=== PATIENT | female | born 1935 | race Caucasian/White ===

== ENCOUNTER 2018-10-25 09:32 | Outpatient (CLI) | payer MEDICARE ==
--- NOTE | 2018-10-25 14:15 | XRAY Report ---
Reason: PAIN IN RIGHT HIP Procedure Date: 10/25/2018 Accession Number: [id number] / [id number] Procedure: XR - Hip w/Pelvis 2-3V RT CPT Code: FULL RESULT: EXAM: RIGHT HIP RADIOGRAPHY EXAM DATE: 10/25/2018 11:13 AM. CLINICAL HISTORY: Pain in right hip. COMPARISON: None. TECHNIQUE: 2 views. FINDINGS: Bones: Normal. No fractures or bone lesion. Joints: No dislocation. The hip joint space is preserved. Probable degenerative facet changes at L4-L5. Soft Tissues: Normal. No soft tissue swelling. IMPRESSION: Normal hip radiography. RADIA
== END 2018-10-25 09:33 | disposition home or self-care (01) ==
LOC: DI 09:32
PROVIDERS: ATTEND Nurse Practitioner Family
DX: M25.551 Pain in right hip (principal)

== ENCOUNTER 2018-11-01 15:03 | Outpatient (CLI) | payer MEDICARE ==
--- NOTE | 2018-11-09 09:24 | Mammography Report ---
Reason: ENCOUNTER FOR SCREENING MAMMOGRAM FOR MALIGNANT NE Procedure Date: 11/01/2018 Accession Number: [id number] / [id number] Procedure: MELVA - Screening Mammo w/Forrest CPT Code: FULL RESULT: EXAM: Screening Mammo w/Forrest DATE: 11/01/2018 3:54 PM CLINICAL HISTORY: Routine screening TECHNIQUE: (B) - Bilateral CC and MLO views were obtained. COMPARISON: 08/21/2017, 08/23/2016 PARENCHYMAL PATTERN: (A) - The breasts demonstrate scattered fibroglandular densities bilaterally. FINDINGS: No significant interval change. There are no suspicious masses, calcifications, or areas of distortion. IMPRESSION: Negative examination. BI-RADS category 1. RECOMMENDATION: (ANNUAL) - Recommend routine annual screening mammography. BI-RADS CATEGORY: (1) - Negative. STANDARD QUALIFYING STATEMENTS: 1. This examination was not reviewed with the aid of Computer-Aided Detection (CAD). 2. A negative or benign imaging report should not preclude biopsy if clinically suspicious findings are present. 3. Dense breasts may obscure an underlying neoplasm. 4. This examination was reviewed with the aid of 3D breast imaging (tomosynthesis).
== END 2018-11-01 15:04 | disposition home or self-care (01) ==
LOC: DI 15:03
PROVIDERS: ATTEND Registered Nurse
DX: Z12.31 Encounter for screening mammogram for malignant neoplasm of breast (principal)
CPT/HCPCS: 77063; 77067

== ENCOUNTER 2019-12-25 13:38 | Outpatient (CLI) | payer MEDICARE ==
--- NOTE | 2019-12-26 11:39 | Mammography Report ---
BILATERAL DIGITAL SCREENING MAMMOGRAM 3D/2D: 12/25/2019 CLINICAL: Routine screening. Comparison is made to exams dated: 11/01/2018 mammogram and 08/30/2017 mammogram - [facility]. There are scattered fibroglandular elements in both breasts. No significant masses, calcifications, or other findings are seen in either breast. There has been no significant interval change. IMPRESSION: NEGATIVE There is no mammographic evidence of malignancy. A 1 year screening mammogram is recommended. This exam was interpreted at Station ID: [id number]. NOTE: For mammograms, a report in lay terms will be sent to the patient. Approximately 15% of breast malignancies will not be visualized mammographically. In the management of a palpable breast mass, a negative mammogram must not discourage biopsy of a clinically suspicious lesion. Electronically Signed By: Mane Joseph M.D. aty/penrad:12/25/2019 18:08:52 ACR BI-RADS Category 1: Negative 3341F PARENCHYMAL PATTERN: (A) - The breast(s) demonstrate(s) scattered fibroglandular densities. BI-RADS CATEGORY: (1) - 1 RECOMMENDATION: (ANNUAL) - Recommend routine annual screening mammography. [id number] 1 year screening LATERALITY: (B)
== END 2019-12-25 13:39 | disposition home or self-care (01) ==
LOC: DI 13:38
PROVIDERS: ATTEND Registered Nurse
DX: Z12.31 Encounter for screening mammogram for malignant neoplasm of breast (principal)
CPT/HCPCS: 77063; 77067

== ENCOUNTER 2020-01-30 09:07 | Day surgery (SDC) | payer MEDICARE ==
[2020-01-30] MEDS ORDERED: LACTATED RINGERS 1,000 ML IV ONE ×2 (09:36→11:17)
[2020-01-30] MEDS ORDERED: fentaNYL 250 MCG/5 ML VIAL IVP ONE (10:48)
[2020-01-30] MEDS ORDERED: MIDAZOLAM 2 MG/2 ML VIAL IVP ONE (10:48)
[2020-01-30 11:34] VITALS: BP 114/68
== END 2020-01-30 09:08 | disposition home or self-care (01) ==
LOC: SDS 09:07
PROVIDERS: ATTEND Surgery
PROC: 0DJD8ZZ Inspection of Lower Intestinal Tract, Via Natural or Artificial Opening Endoscopic (ICD-10-PCS; principal; 2020-01-30 10:30)
DX: Z12.11 Encounter for screening for malignant neoplasm of colon (principal); Z86.010 Personal history of colon polyps; Z80.0 Family history of malignant neoplasm of digestive organs; K57.30 Diverticulosis of large intestine without perforation or abscess without bleeding; K64.4 Residual hemorrhoidal skin tags; K64.8 Other hemorrhoids; Z79.82 Long term (current) use of aspirin
CPT/HCPCS: G0105; J3010; J7120

== ENCOUNTER 2020-12-29 14:11 | Outpatient (CLI) | payer MEDICARE ==
--- NOTE | 2020-12-30 15:13 | Mammography Report ---
BILATERAL DIGITAL SCREENING MAMMOGRAM 3D/2D WITH EXAGGERATED CC: 12/29/2020 CLINICAL: Family history of breast cancer. Comparison is made to exams dated: 12/25/2019 mammogram, 11/01/2018 mammogram, and 08/30/2017 mammogram - [facility]. There are scattered fibroglandular elements in both breasts. No significant masses, calcifications, or other findings are seen in either breast. There has been no significant interval change. IMPRESSION: NEGATIVE There is no mammographic evidence of malignancy. A 1 year screening mammogram is recommended. This exam was interpreted at Station ID: [id number]. NOTE: For mammograms, a report in lay terms will be sent to the patient. Approximately 15% of breast malignancies will not be visualized mammographically. In the management of a palpable breast mass, a negative mammogram must not discourage biopsy of a clinically suspicious lesion. Electronically Signed By: Yannick Spivey M.D. ddp/penrad:12/29/2020 14:52:55 ACR BI-RADS Category 1: Negative 3341F PARENCHYMAL PATTERN: (A) - The breast(s) demonstrate(s) scattered fibroglandular densities. BI-RADS CATEGORY: (1) - 1 RECOMMENDATION: (ANNUAL) - Recommend routine annual screening mammography. [id number] 1 year screening LATERALITY: (B)
== END 2020-12-29 14:12 | disposition home or self-care (01) ==
LOC: DI.S 14:11
DX: Z12.31 Encounter for screening mammogram for malignant neoplasm of breast (principal); Z80.3 Family history of malignant neoplasm of breast

== ENCOUNTER 2021-03-17 09:34 | Outpatient (CLI) | payer MEDICARE ==
--- NOTE | 2021-03-17 10:16 | XRAY Report ---
PROCEDURE: Hand 2 View RT INDICATIONS: MASS OF JOINT OF RIGHT HAND TECHNIQUE: 2 views of the hand(s) acquired. COMPARISON: None available. FINDINGS: BONES: No acute, displaced fracture or dislocation. The carpal bones are normally aligned. 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 Carley int space narrowing and osteophytosis involving the fifth DIP. SOFT TISSUES: No acute abnormality. IMPRESSION: 1.No acute osseous abnormality. 2.Degenerative changes of the hand as detailed above. If there is clinical concern for a ganglion, consider focused ultrasound. Reviewed by: Sundeep Fisher MD on 03/17/2021 10:15 AM PDT Approved by: Sundeep Fisher MD on 03/17/2021 10:15 AM PDT Station ID: [id number]
== END 2021-03-17 09:35 | disposition home or self-care (01) ==
LOC: DI.S 09:34
PROVIDERS: ATTEND Nurse Practitioner Family
DX: M25.841 Other specified joint disorders, right hand (principal); M19.041 Primary osteoarthritis, right hand

== ENCOUNTER 2021-03-23 12:32 | Outpatient (CLI) | payer MEDICARE ==
--- NOTE | 2021-03-23 16:18 | Ultrasound Report ---
PROCEDURE: Ext Limited Non Vascular INDICATIONS: MASS OF RIGHT HAND JOINT TECHNIQUE: Real-time scanning was performed of the right wrist, with image documentation. COMPARISON: Right hand radiographs 03/17/2021 FINDINGS: A hypoechoic structure measuring 1.6 x 0.8 x 1.5 cm is seen at the patient indicated palpable area of interest in the right wrist. No internal vascularity is seen. IMPRESSION: A 1.6 cm hypoechoic structure is seen at the palpable area of interest, most likely representing a ga nglion cyst with intracystic debris or internal hemorrhage, although a solid mass is not excluded. Re commend MRI of the wrist with and without contrast for further evaluation if there is no contraindica tion. Reviewed by: Juan Carlos Khan MD on 03/23/2021 4:17 PM PDT Approved by: Juan Carlos Khan MD on 03/23/2021 4:17 PM PDT Station ID: [id number]
== END 2021-03-23 12:33 | disposition home or self-care (01) ==
LOC: DI 12:32
PROVIDERS: ATTEND Nurse Practitioner Family
DX: M25.841 Other specified joint disorders, right hand (principal)

== ENCOUNTER 2021-10-11 18:15 | Emergency (ER) | payer MEDICARE ==
[2021-10-11] MEDS ORDERED: PROPARACAINE 0.5% OPHTH DROPS 15 ML RIGHTEYE STA (19:13)
[2021-10-11] MEDS ORDERED: ERYTHROMYCIN OPHTH OINT 1 GM TUBE RIGHTEYE STA (19:51)
[2021-10-11] MEDS ORDERED: oxyCODONE/ACET 5/325 Prepack 4 PO STA (19:57)
--- NOTE | 2021-10-11 20:02 | ED Physician Documentation ---
PD HPI OPHTHO - Stated complaint Stated Complaint: R EYE PAIN/SWELLING - Chief complaint Chief Complaint: Heent - History obtained from History obtained from: Patient - Additional information Additional information: Patient is an 86-year-old female with a history of macular degeneration with right eye irritation since this morning. Patient had injection of Avastin at 11 AM in her right eye by her irish moss bleacher, Dr. Campbell. She is had these injections for some time. She felt the usual gritty beth feeling in her right eye but that feeling became worse throughout the day which she has not experi enced previously. She has developed photophobia which she states is also new for her symptoms. She has been in contact with her irish moss bleacher who recommended coming to the emergency department or urgent care for evaluation.Patient states that normally she is not able to see the visual acuity chart from her right eye. She does not use contacts. She denies fever, abnormal discharge, congestion, cough. Review of Systems Constitutional: denies: Fever Eyes: reports: Photophobia. 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 : None HEENT: Chronic vision loss, Macular degeneration Psych: None Musculoskeletal: Osteoarthritis Derm: Other - Past Surgical History Past Surgical History: Yes General: Cholecystectomy, Appendectomy, Colonoscopy Ortho: ACL reconstruction, Arthroscopic surgery, Carpal Tunnel surgery /BREAK OFF WORKER: Tubal ligation, Hysterectomy HEENT: Cataracts, Tonsil/Adenoidectomy - Present Medications Home Medications: Ambulatory Orders Medication Instructions Recorded Confirmed Erythromycin Base [Erythromycin 1 appful RIGHTEYE 5XD 7 Days #1 gm 10/11/21 Ophthalmic Ointment] - Allergies Allergies/Adverse Reactions: Allergies Allergy/AdvReac Type Severity Reaction Status Date / Time No Known Drug Allergies Allergy Verified 10/11/21 18:23 - Social History Does the pt smoke?: No Smoking Status: Never smoker Does the pt drink ETOH?: Yes Does the pt have substance abuse?: No - Immunizations Immunizations are current?: Yes - POLST Patient has POLST: No PD ED PE NORMAL - General General: Alert and oriented X 3, No acute distress, Well developed/nourished - HEENT HEENT: Atraumatic, PERRL, EOMI - Neck Neck: Supple, no meningeal sign - Respiratory Respiratory: No respiratory distress - Derm Derm: No rash - Extremities Extremities: No edema - Neuro Neuro: Normal speech PD ED PE EXPANDED - HEENT HEENT Visual: 1 - abrasion 2 - abrasion 3 - abrasion 4 - abrasion - Eyes Eyes: PERRL, EOMI, Normal eyelids, Corneal abrasion (Right I), Fluorescein upta ke, Anterior chambers clear, Other (IOP 19 R EYE). No: Eyelid swelling, Eyelid erythema, No eyelid FB (everted), Hyphema Results - Vitals Vitals: Vital Signs - 24 hr 10/11/21 10/11/21 18:24 20:26 Temperature 36.6 C 36.6 C Heart Rate 66 64 Respiratory 18 16 Rate Blood Pressure 144/62 H 138/60 H O2 Saturation 99 100 Oxygen O2 Source Room air PD MEDICAL DECISION MAKING - ED course ED course: Patient with right eye irritation after injection for macular degeneration. Visual acuity appears to be at patient's baseline. No signs of preseptal or orbital cellulitis.On exam of the cornea, there is fluorescein uptake seen in 4 areas. Intraocular pressure is normal. Reviewed these findings with on-call irish moss bleacher for patient's irish moss bleacher Who agrees with plan for antibiotic ointment and close follow-up.Patient was counseled regarding her diagnosis and need for close follow-up tomorrow. She is also aware of strict return precautions. 1944 - D/W Dr. Alejandre (Opthlamology, acute care nurse practitioner for Dr. Joseph) - Believes the corneal abrasions could have been caused by the Betadine used for the injection. Recommends erythromycin ointment every 1-2 hours while awake. Has made it a follow-up appointment for the patient to be seen tomorrow morning at 1040 at the [facility]. Departure - Departure Disposition: 01 Home, Self Care Clinical Impression: Right corneal abrasion Qualifiers: Encounter type: initial encounter Qualified Code(s): S05.01XA - Injury of conjunctiva and corneal abrasion without foreign body, right eye, initial encounter Condition: Stable Instructions: ED Eye Injury Corneal Abrasion Prescriptions: Erythromycin Base [Erythromycin Ophthalmic Ointment] 1 appful RIGHTEYE 5XD 7 Days #1 gm Comments: Your right eye was evaluated and found to have a corneal abrasion.We are going to start you on antibiotic ointment which you should apply to the right eye every 1-2 hours while awake. If you wake up in the middle of the night you can apply some more. A prescription for the ointment was also sent to the [facility] in [place]. I have spoken to The on-call irish moss bleacher and they have made an appointment for you to be seen at the [facility] tomorrow morning October 12 at 10:40 AM. It is important to keep this appointment for close follow-up. If it anytime you seem to have any worsening symptoms such as fever, swelling, increased pain, changes to your vision please return to the emergency department. You will also be given a small amount of narcotic medication to use tonight to help you get some rest. Please use this sparingly as it may cause dizziness or drowsiness. I am prescribing a short course of narcotic pain medication for you. These are potentially dangerous and addictive medications that should be used carefully. These medications may constipate you. Take an amyu-wro-ejanuum stool softener (docusate) twice daily with plenty of water while taking these medications. If you go 24 hours without a bowel movement, take lcey-ewa-zpbbdxs miralax, per package instructions. Do not drink or drive while taking these medications. If you received narcotic or sedating medications while in the emergency department, do not drive for 24 hours. Store this medication in a safe, secure place and out of reach of children. It is a violation of federal law to give or sell this medication to another person or to use in a manner other than prescribed. The ED will not refill narcotic prescriptions, including prescriptions lost or stolen. To dispose of unwanted medications: 1. [facility] [address] in [place] has a medication drop box. They accept prescription medications (in pill form) [place] through Monday 9:00 a.m. to 5:00 p.m. 2. The [facility] [employer] accepts prescription medications (in pill form only) for disposal year round. Call for more in formation. 3. Contact the [facility] for the next [facility] sponsored prescription drug collection event. , [phone], or [phone]; Note that many narcotic pain relievers also contain Tylenol/acetaminophen. Please ensure that your total dose of acetaminophen from all sources does not exceed 3 g (3000 mg) per day. Discharge Date/Time: 10/11/21 20:26
[2021-10-11 20:27] VITALS: BP 138/60
== END 2021-10-11 20:26 | disposition home or self-care (01) ==
LOC: ED 18:15
DX: S05.01XA Injury of conjunctiva and corneal abrasion without foreign body, right eye, initial encounter (principal); X58.XXXA Exposure to other specified factors, initial encounter
CPT/HCPCS: 99282; 99284; J3490

== ENCOUNTER 2021-12-28 08:00 | Outpatient (CLI) | payer MEDICARE ==
--- NOTE | 2021-12-29 16:18 | Mammography Report ---
BILATERAL DIGITAL SCREENING MAMMOGRAM 3D/2D: 12/28/2021 CLINICAL: Routine screening. Family history of breast cancer. Comparison is made to exams dated: 12/29/2020 mammogram, 12/25/2019 mammogram, and 11/01/2018 mammogram - [facility]. There are scattered fibroglandular elements in both breasts. No significant masses, calcifications, or other findings are seen in either breast. There has been no significant interval change. IMPRESSION: NEGATIVE There is no mammographic evidence of malignancy. A 1 year screening mammogram is recommended. Based on the Tyrer Cuzick model (a risk assessment model) the patients lifetime risk is % and her 10 year risk is %. According to the ACR, ACS, and NCCN guidelines, an annual breast MRI exam along with mammogram is recommended if the patients lifetime risk is 20% or greater. This exam was interpreted at Station ID: [id number]. NOTE: For mammograms, a report in lay terms will be sent to the patient. Approximately 15% of breast malignancies will not be visualized mammographically. In the management of a palpable breast mass, a negative mammogram must not discourage biopsy of a clinically suspicious lesion. Electronically Signed By: Mane Joseph M.D. aty/penrad:12/29/2021 07:48:35 ACR BI-RADS Category 1: Negative 3341F PARENCHYMAL PATTERN: (A) - The breast(s) demonstrate(s) scattered fibroglandular densities. BI-RADS CATEGORY: (1) - 1 RECOMMENDATION: (ANNUAL) - Recommend routine annual screening mammography. [id number] 1 year screening LATERALITY: (B)
== END 2021-12-28 23:59 | disposition home or self-care (01) ==
LOC: DI.S 08:00
DX: Z12.31 Encounter for screening mammogram for malignant neoplasm of breast (principal); Z80.3 Family history of malignant neoplasm of breast

== ENCOUNTER 2023-04-25 08:45 | Outpatient (CLI) | payer MEDICARE ==
--- NOTE | 2023-04-26 16:06 | Mammography Report ---
BILATERAL DIGITAL SCREENING MAMMOGRAM 3D/2D: 04/25/2023 CLINICAL: Routine screening. Family history of breast cancer. Comparison is made to exams dated: 12/28/2021 mammogram, 12/29/2020 mammogram, 12/25/2019 mammogram, an d 11/01/2018 mammogram - [facility]. There are scattered areas of fibroglandular density in both breasts (category b / 25%-50% glandular t issue). No significant masses, calcifications, or other findings are seen in either breast. There has been no significant interval change. IMPRESSION: NEGATIVE There is no mammographic evidence of malignancy. A 1 year screening mammogram is recommended. This exam was interpreted at Station ID: [id number]. NOTE: For mammograms, a report in lay terms will be sent to the patient. Approximately 15% of breast malignancies will not be visualized mammographically. In the management of a palpable breast mass, a negative mammogram must not discourage biopsy of a clinically suspicious lesion. Electronically Signed By: Helder johnson/maris:04/25/2023 18:13:03 letter sent: No_Letter ACR BI-RADS Category 1: Negative 3341F PARENCHYMAL PATTERN: (A) - The breast(s) demonstrate(s) scattered fibroglandular densities. BI-RADS CATEGORY: (1) - 1 Mammogram [id number] 1 year screening LATERALITY: (B)
== END 2023-04-25 08:46 | disposition home or self-care (01) ==
LOC: DI.S 08:45
DX: Z12.31 Encounter for screening mammogram for malignant neoplasm of breast (principal); Z80.3 Family history of malignant neoplasm of breast; R92.323 Mammographic fibroglandular density, bilateral breasts

== ENCOUNTER 2023-07-31 09:48 | Outpatient (CLI) | payer MEDICARE ==
--- NOTE | 2023-07-31 14:05 | XRAY Report ---
PROCEDURE: Knee 3V RT INDICATIONS: PAIN IN RIGHT LOWER LIMB TECHNIQUE: 3 views of the knee(s) were acquired. COMPARISON: None. FINDINGS: Bones: No fractures or dislocations. No suspicious bony lesions. Moderate to severe tricompartmental degenerative change most severe medially. Periarticular osteophyt es are present. No erosions. Mild lateral patellar subluxation. Soft tissues: No knee joint effusion. No suspicious soft tissue calcifications or masses. IMPRESSION: Tricompartmental arthritic change. Reviewed by: Teena Geiger MD on 07/31/2023 2:04 PM PST Approved by: Teena Geiger MD on 07/31/2023 2:04 PM PST Station ID: [id number]
== END 2023-07-31 09:49 | disposition home or self-care (01) ==
LOC: DI.S 09:48
PROVIDERS: ATTEND Registered Nurse
DX: M17.11 Unilateral primary osteoarthritis, right knee (principal)

== ENCOUNTER 2023-10-18 15:27 | Outpatient (CLI) | payer MEDICARE ==
--- NOTE | 2023-10-18 21:22 | XRAY Report ---
PROCEDURE: Lumbar Spine 2-3V INDICATIONS: RIGHT SIDE SCIATICA TECHNIQUE: 3 views of the lumbar spine were acquired. COMPARISON: None. FINDINGS: Bones: 5 jdu-wyo-ckaeqnh vertebrae are present. There is trace retrolisthesis of L1 on L2, L2 on L3 , trace anterolisthesis of L4 on L5. Multilevel moderate to severe disc space narrowing is present mo st severe at T12-L1, L1-L2 and L5-S1. Moderate to severe foraminal narrowing is present at T12-L1, L1 -L2 and L5-S1. Small multilevel anterior osteophytes are present. No vertebral body compression fract ures. No suspicious bony lesions. Soft tissues: Overlying bowel gas pattern is normal. No suspicious soft tissue calcifications. IMPRESSION: Multilevel degenerative disc and foraminal narrowing most severe at T12-L1, L1-L2 and L5-S1. Reviewed by: Teena Geiger MD on 10/18/2023 9:21 PM PDT Approved by: Teena Geiger MD on 10/18/2023 9:21 PM PDT Station ID: [id number]
--- NOTE | 2023-10-18 21:23 | XRAY Report ---
PROCEDURE: Hip w/Pelvis 2-3V RT INDICATIONS: RIGHT SIDE SCIATICA TECHNIQUE: 2 views of the hip were acquired. COMPARISON: X-ray hip 10/25/2018 FINDINGS: Bones: No fractures or dislocations. No suspicious bony lesions. Moderate bilateral degenerative hip joint space narrowing. No distinct erosions. Overall appearance is minimally progressive compared to 2019. Degenerative changes are present within the lower lumbar spine. Soft tissues: No suspicious soft tissue calcifications or masses. IMPRESSION: Bilateral hip arthritic change slightly worse on the right and minimally progressive since 2019. Reviewed by: Teena Geiger MD on 10/18/2023 9:22 PM PDT Approved by: Teena Geiger MD on 10/18/2023 9:22 PM PDT Station ID: [id number]
== END 2023-10-18 15:28 | disposition home or self-care (01) ==
LOC: DI.S 15:27
PROVIDERS: ATTEND Nurse Practitioner Family
DX: M54.31 Sciatica, right side (principal); M16.0 Bilateral primary osteoarthritis of hip; M51.36 Other intervertebral disc degeneration, lumbar region; M48.061 Spinal stenosis, lumbar region without neurogenic claudication; M51.37 Other intervertebral disc degeneration, lumbosacral region; M48.07 Spinal stenosis, lumbosacral region

== ENCOUNTER 2023-10-31 12:40 | Outpatient (CLI) | payer MEDICARE ==
--- NOTE | 2023-10-31 17:52 | MRI Report ---
PROCEDURE: Lumbar Spine WO INDICATIONS: R SIDE SCIATICA TECHNIQUE: Noncontrast sagittal T1 spin echo and T2 fast echo, sagittal STIR, axial T1 and T2 fast spin echo thr ough the lumbar spine. In cases with scoliosis, additional coronal T2 fast spin echo may be performe d. COMPARISON: Lumbar spine x-ray 10/18/2023. FINDINGS: Image quality: Excellent. Alignment and Curvature: There is grade 1 retrolisthesis of T12 on L1, L1-L2. Grade I anterolisthesis of L4 on L5.. Bone Marrow: Normal type I degenerative endplate changes at T12-L1. Marrow is of normal overall sign al. No acute vertebral body compression fractures. Spinal Cord: Conus medullaris terminates at the L1 level. Visualized cord demonstrates normal signa l and size. Paraspinous Soft Tissues: No paravertebral masses. Bilateral subcentimeter renal T2 hyperintensitie s, if it represents simple cysts. T12-L1: Disc desiccation, height loss and a posterior disc bulge. Facet arthropathy and thickening o f ligamentum flavum. No significant central canal or neural foraminal stenosis. L1-L2: Disc desiccation, height loss and a posterior disc bulge. Facet arthropathy and thickening of ligamentum flavum. Mild central canal and bilateral neural foraminal stenosis. L2-L3: Disc desiccation, height loss and a posterior disc bulge. Facet arthropathy and thickening of ligamentum flavum. Mild central canal and bilateral neural foraminal stenosis. L3-L4: Disc desiccation, height loss and a posterior disc bulge. Facet arthropathy and thickening o f ligamentum flavum. Mild epidural lipomatosis. Mild central canal and bilateral neural foraminal jeanne nosis. L4-L5: Anterolisthesis. Disc desiccation, height loss and a posterior disc bulge. Facet arthropathy and thickening of ligamentum flavum. Moderate central canal stenosis. Severe right and mild left chary ral foraminal stenosis. L5-S1: Disc desiccation. Facet arthropathy. No central canal or neural foraminal stenosis. IMPRESSION: 1.Multilevel degenerative changes of the lumbar spine as described above. 2.Moderate central canal stenosis at L4-L5. Mild multilevel central canal stenosis at other levels. 3.Severe right neuroforaminal stenosis at L4-L5. Mild multilevel neural foraminal stenosis at other l evels. Reviewed by: Jorge A Cates MD on 10/31/2023 4:50 PM AKDT Approved by: Jorge A Cates MD on 10/31/2023 4:50 PM AKDT Station ID: [id number]
== END 2023-10-31 12:41 | disposition home or self-care (01) ==
LOC: DI 12:40
PROVIDERS: ATTEND Nurse Practitioner Family
DX: M47.25 Other spondylosis with radiculopathy, thoracolumbar region (principal); M51.15 Intervertebral disc disorders with radiculopathy, thoracolumbar region; M47.26 Other spondylosis with radiculopathy, lumbar region; M51.16 Intervertebral disc disorders with radiculopathy, lumbar region; M47.27 Other spondylosis with radiculopathy, lumbosacral region; M51.17 Intervertebral disc disorders with radiculopathy, lumbosacral region

== ENCOUNTER 2023-11-30 10:56 | Outpatient (CLI) | payer MEDICARE ==
[2023-11-30 15:09] LABS: BASOPHILS % (AUTO) 0.3 %; EOSINOPHILS % (AUTO) 0.1 %; HCT - HEMATOCRIT 39.2 % (37.0-47.0); HGB - HEMOGLOBIN 12.5 g/dL (12.0-16.0); LYMPHOCYTES # (AUTO) 2.1 10^3/uL (1.5-3.5); LYMPHOCYTES % (AUTO) 29.3 %; MEAN CORPUSCULAR HGB CONC 31.9 g/dL (32.0-36.0); MEAN CORPUSCULAR VOLUME 87.7 fL (81.0-99.0); MEAN PLATELET VOLUME 10.7 fL (7.9-10.8); MONOCYTES # (AUTO) 1.2 10^3/uL (0.0-1.0); MONOCYTES % (AUTO) 17.5 %; NEUTROPHILS # (AUTO) 3.7 10^3/uL (1.5-6.6); NEUTROPHILS % (AUTO) 52.4 %; PLT - PLATELET COUNT 325 10^3/uL (130-450); RED BLOOD COUNT 4.47 10^6/uL (4.20-5.40); RED CELL DISTRIBUTION WIDTH 14.6 % (12.0-15.0); WHITE BLOOD COUNT 7.1 x10^3/uL (4.8-10.8)
[2023-11-30 15:19] LABS: ALBUMIN 4.3 g/dL (3.2-5.5); BILIRUBIN,TOTAL 0.9 mg/dL (0.2-1.0); CALCIUM 9.9 mg/dL (8.5-10.3); CREATININE 0.8 mg/dL (0.6-1.3); POTASSIUM 4.3 mmol/L (3.5-4.5); TOTAL PROTEIN 6.4 g/dL (6.4-8.9)
== END 2023-11-30 10:57 | disposition home or self-care (01) ==
LOC: LAB.S 10:56
PROVIDERS: ATTEND Registered Nurse
DX: Z51.81 Encounter for therapeutic drug level monitoring (principal); Z79.899 Other long term (current) drug therapy
CPT/HCPCS: 36415; 80053; 85025

== ENCOUNTER 2024-01-23 08:05 | Outpatient (CLI) | payer MEDICARE | END 2024-01-23 08:06 | disposition home or self-care (01) | LOC: CAM 08:05 | PROVIDERS: ATTEND Nurse Practitioner Family | DX: M54.31 Sciatica, right side (principal) | CPT/HCPCS: 97810; 97811 ==

== ENCOUNTER 2024-02-13 09:13 | Outpatient (CLI) | payer MEDICARE | END 2024-02-13 09:14 | disposition home or self-care (01) | LOC: CAM 09:13 | PROVIDERS: ATTEND Nurse Practitioner Family | DX: M54.31 Sciatica, right side (principal) | CPT/HCPCS: 97810; 97811 ==